=== PATIENT | female | born 1970 | race Caucasian/White ===

== ENCOUNTER → 2016-11-25 | Outpatient (CLI) | payer BC ==
--- NOTE | 2016-11-26 12:56 | MM ---
Reason for exam: screening (asymptomatic). Last mammogram was performed 1 year and 1 month ago. History: Family history of premenopausal breast cancer in mother at age 40. Took hormonal contraceptives for 10 years. Physical Findings: A clinical breast exam by your physician is recommended on an annual basis and results should be correlated with mammographic findings. MG Screening Mammo w CAD Bilateral CC and MLO view(s) were taken. Prior study comparison: October 28, 2015, bilateral MG screening mammo w CAD. October, bilateral MG diagnostic mammo w CAD LUCHO. August 25, 2013, bilateral digital screening mammo w/CAD. The breast tissue is heterogeneously dense. This may lower the sensitivity of mammography. Finding: There are grouped indeterminate calcifications in the upper outer quadrant, posterior position of the left breast. There is a chronic nodularity in the right axilla. New finding, increase in size (nodularity right axilla), and increase in number of calcifications (left breast) since October 28, 2015, October 26, 2014, and August 25, 2013. ASSESSMENT: Incomplete: need additional imaging evaluation, BI-RAD 0 RECOMMENDATION: Special view mammogram of the left breast. Ultrasound of the right breast. [facility] will attempt to contact patient to return for supplemental views and ultrasound. COMFORT
== END | disposition home or self-care (01) ==
LOC: RADMAMWWP 16:39
PROVIDERS: ATTEND Obstetrics & Gynecology
DX: Z12.31 Encounter for screening mammogram for malignant neoplasm of breast (principal); R92.2 Inconclusive mammogram; Z80.3 Family history of malignant neoplasm of breast

== ENCOUNTER → 2016-12-04 | Outpatient (CLI) | payer BC ==
--- NOTE | 2016-12-05 10:04 | MM ---
Reason for exam: additional evaluation requested from abnormal screening. Last mammogram was performed less than 1 month ago. History: Family history of premenopausal breast cancer in mother at age 40. Took hormonal contraceptives for 10 years. Physical Findings: Nurse did not find any significant physical abnormalities on exam. MG 3D Work Up W/Cad LT LM, CC with magnification, and LM with magnification view(s) were taken of the left breast. Prior study comparison: November 25, 2016, bilateral MG screening mammo w CAD. October 28, 2015, bilateral MG screening mammo w CAD. October 26, 2014, bilateral MG diagnostic mammo w CAD LUCHO. The breast tissue is heterogeneously dense. This may lower the sensitivity of mammography. Finding: There are indeterminate coarse heterogeneous, regional calcifications in the upper outer quadrant of the left breast. Increase in number of calcifications since November 25, 2016, October 28, 2015, and October 26, 2014. These results were verbally communicated with the patient and result sheet given to the patient on 12/04/16. ASSESSMENT: Suspicious, BI-RAD 4 RECOMMENDATION: Stereotactic core biopsy of the left breast. (high risk family history) Called Dr. Agarwal with mammographic findings and has scheduled an appointment for the patient for 12/23/16 at 1:[address] Copeland. Biopsy scheduled for 12/18/16 at 2:20. PRELIMINARY REPORT CALLED AND FAXED TO DR. COPELAND ON 12/05/16 AT 300/TP.
--- NOTE | 2016-12-05 10:19 | USB ---
Reason for exam: additional evaluation requested from abnormal screening. History: Family history of premenopausal breast cancer in mother at age 40. Took hormonal contraceptives for 10 years. US Breast Workup Limited RT Right breast ultrasound demonstrates a 4 x 3 x 2mm oval, cystic simple cyst at 10 o'clock stable from 2013 and a 5 x 4 x 4mm lymph node at 10 o'clock stable from 2013. These results were verbally communicated with the patient and result sheet given to the patient on 12/04/16. ASSESSMENT: Benign, BI-RAD 2 RECOMMENDATION: Follow-up diagnostic mammogram of both breasts in 1 year.
== END | disposition home or self-care (01) ==
LOC: RADMAMWWP 13:38
PROVIDERS: ATTEND Obstetrics & Gynecology
DX: R92.8 Other abnormal and inconclusive findings on diagnostic imaging of breast (principal)
CPT/HCPCS: 76642; G0206; G0279

== ENCOUNTER → 2016-12-18 | Day surgery (SDC) | payer BC ==
[2016-12-18 13:53] VITALS: RESP 16; BMI 27.4
[2016-12-18 16:03] VITALS: BP 138/80; PULSE 51; TEMP 97.6
--- NOTE | 2016-12-18 16:05 | MM ---
EXAMINATION TYPE: MG stereo VAD BX LT DATE OF EXAM: 12/18/2016 COMPARISON: Previous mammogram dated 11/25/2016 CLINICAL HISTORY: Abnormal mammogram. TECHNIQUE: Stereotactic guided core biopsy of left breast. FINDINGS: The procedure of stereotactic guided core biopsy was explained to the patient. Benefits, alternatives, and risks were discussed. An informed consent was then obtained. The shortness pathway for biopsy was chosen. Shortness pathway was a lateral to medial approach. I performed the localization, then surgeon, Dr. Zhang performed the remainder of the procedure. A vacuum assisted biopsy gun was used to obtain multiple core samples. The patient tolerated the procedure well without any immediate complication. The patient was kept in the radiology department for short stay after the procedure and then discharged home in stable condition. Targeted calcifications are identified in specimen mammogram. Post biopsy mammogram shows the clip to appear in satisfactory position relative to the targeted area of concern on the preprocedure images. IMPRESSION: SUCCESSFUL, UNCOMPLICATED STEREOTACTIC GUIDED CORE BIOPSY OF AREA OF CONCERN IN THE left BREAST, FULL PATHOLOGY RESULTS TO FOLLOW. Pathology Results: Benign BREAST, LEFT, CORE BIOPSY: FIBROCYSTIC CHANGES INCLUDING SCLEROSING ADENOSIS WITH CALCIFICATIONS, FIBROSIS, CYSTS AND COLUMNAR CELL HYPERPLASIA. Recommendation Follow up mammogram of the left breast in 6 months. COMFORT
== END ==
LOC: RADMAMWWP 13:27
PROVIDERS: ATTEND Surgery
DX: N60.12 Diffuse cystic mastopathy of left breast (principal); N60.22 Fibroadenosis of left breast; N62 Hypertrophy of breast; R92.8 Other abnormal and inconclusive findings on diagnostic imaging of breast
CPT/HCPCS: 88305; 19081; A4648; J2001

== ENCOUNTER → 2017-01-08 | Day surgery (SDC) | payer BC ==
[2017-01-08 07:55] VITALS: RESP 16; BMI 27.4
[2017-01-08 09:35] VITALS: BP 145/77; PULSE 73; TEMP 98.3
--- NOTE | 2017-01-08 10:27 | MM ---
EXAMINATION TYPE: MG stereo VAD BX LT DATE OF EXAM: 01/08/2017 COMPARISON: Prior stereotactic guided core biopsy December 18, 2016 and older studies. CLINICAL HISTORY: Prior abnormal mammogram. Family history of breast cancer in mom with negative rece nt biopsy but additional sampling of more posterior calcifications or tissue is requested TECHNIQUE: Stereotactic guided core biopsy of left breast with clip placement and follow-up two-view mammogram. FINDINGS: The procedure of stereotactic guided core biopsy was explained to the patient. Benefits, a lternatives, and risks were discussed. An informed consent was then obtained. Inferior approach was chosen due to posterior location. I performed the localization then performed t he remainder of the procedure. Overlying skin is cleansed with Betadine. Lidocaine is used as anesthe tic into the skin. Lidocaine with epinephrine is used as anesthetic into the deeper tissue. A vacuum assisted biopsy gun was used to obtain multiple core samples. The patient tolerated the procedure well without any immediate complication. The patient was kept in the radiology department for short stay after the procedure and then discharged home in stable condi tion. Targeted calcifications are identified in specimen mammogram. Post biopsy mammogram shows the clip to appear in satisfactory position relative to the targeted area of concern on the preprocedure images the more posterior regional indeterminate calcifications and is posterior in location to firs t biopsy site. IMPRESSION: SUCCESSFUL, UNCOMPLICATED STEREOTACTIC GUIDED CORE BIOPSY OF AREA OF CONCERN IN THE LEFT BREAST, FULL PATHOLOGY RESULTS TO FOLLOW. Low index of suspicion noted at time of procedure.
== END ==
LOC: RADMAMWWP 07:28
PROVIDERS: ATTEND Surgery
DX: N60.32 Fibrosclerosis of left breast (principal); N64.9 Disorder of breast, unspecified; R92.8 Other abnormal and inconclusive findings on diagnostic imaging of breast; N60.22 Fibroadenosis of left breast; N60.92 Unspecified benign mammary dysplasia of left breast; Z88.5 Allergy status to narcotic agent; Z88.0 Allergy status to penicillin
CPT/HCPCS: 88305; 19081; A4648; J2001

== ENCOUNTER → 2017-12-30 | Outpatient (CLI) | payer BC ==
--- NOTE | 2017-12-31 09:04 | MM ---
Reason for exam: additional evaluation requested from prior study. Last mammogram was performed 1 year and 1 month ago. History: Family history of premenopausal breast cancer in mother at age 40. Benign MG stereo VAD BX LT of the left breast, January 08, 2017. Benign MG stereo VAD BX LT of the left breast, December 18, 2016. Took hormonal contraceptives for 10 years. Physical Findings: Nurse did not find any significant physical abnormalities on exam. MG 3D Diag Mammo W/Cad LUCHO Bilateral CC and MLO view(s) were taken. Prior study comparison: December 04, 2016, left breast MG 3d work up w/cad LT. November 25, 2016, bilateral MG screening mammo w CAD. The breast tissue is heterogeneously dense. This may lower the sensitivity of mammography. Finding: There are typically benign round, regional calcifications in the posterior position of the left breast. Previous mammotome biopsy in the left breast x 2. There is no discrete abnormality. These results were verbally communicated with the patient and result sheet given to the patient on 12/30/17. ASSESSMENT: Benign, BI-RAD 2 RECOMMENDATION: Routine screening mammogram of both breasts in 1 year.
== END | disposition home or self-care (01) ==
LOC: RADMAMWWP 14:31
PROVIDERS: ATTEND Obstetrics & Gynecology
DX: R92.8 Other abnormal and inconclusive findings on diagnostic imaging of breast (principal)
CPT/HCPCS: 77062; 77066

== ENCOUNTER 2018-04-29 12:23 | Emergency (ER) | payer BC ==
[2018-04-29 12:42] VITALS: RESP 18
[2018-04-29] MEDS ORDERED: KETOROLAC 30 MG/ML 1 ML VIAL IVP STA (13:03)
[2018-04-29] MEDS ORDERED: ONDANSETRON 4 MG/2 ML VIAL IVP STA (13:03)
--- NOTE | 2018-04-29 13:34 | ED ---
General Adult HPI - General Chief complaint: Dizziness Stated complaint: neck pain/nausea Time Seen by Provider: 04/29/18 12:52 Source: patient, RN notes reviewed Mode of arrival: wheelchair Limitations: no limitations - History of Present Illness Initial comments: Patient's a 48-year-old female presented to the emergency room today with multiple complaints. Patient does admit that over the last few weeks she's had some right-sided neck pain that radiates down to the right arm. She states that she's had chronic neck problems for years. She states it does seem to be increase in the past 3 days she's had a worse pain. She states that she tried some ibuprofen this morning. She states when she got work a coworker had Excedrin that she did try. She is unsure if it's related to the following symptoms of feeling nauseated, lightheaded and dizzy. She states she felt some heart palpitations as well. She states she's not sure if it's just the medications. She states she's not had symptoms similar to this in the past. Patient does admit that symptoms of nausea, lightheaded dizziness and palpitations have improved some since when they started approximately 10 AM this morning. Patient denies any recent fever, chills, shortness of breath, chest pain, back pain, abdominal pain, dysuria or hematuria, constipation or diarrhea, headaches or visual changes, or any other complaints. - Related Data Home Medications Medication Instructions Recorded Confirmed Cyanocobalamin (Vitamin B-12) 1,000 mcg PO DAILY 12/10/16 04/29/18 [Vitamin B-12] Ferrous Sulfate [Iron] 325 mg PO DAILY 12/10/16 04/29/18 Multivitamin [Multiple Vitamins] 1 tab PO DAILY 12/10/16 04/29/18 [place]-3 Fatty Acids [[place]-3] 1,000 mg PO DAILY 12/10/16 04/29/18 Cholecalciferol [Vitamin D3] 1,000 unit PO DAILY 04/29/18 04/29/18 Cranberry Fruit Extract [Cranberry] 200 mg PO DAILY 04/29/18 04/29/18 Omeprazole 40 mg PO DAILY 04/29/18 04/29/18 Thyroid, Pork [[place] Thyroid] 30 mg PO HS 04/29/18 04/29/18 Thyroid,Pork [[place] Thyroid] 90 mg PO BID 04/29/18 04/29/18 Previous Rx's Medication Instructions Recorded Cyclobenzaprine [Flexeril] 10 mg PO TID #20 tab 04/29/18 Ibuprofen [Motrin] 800 mg PO Q6HR #30 tab 04/29/18 Allergies Allergy/AdvReac Type Severity Reaction Status Date / Time Penicillins Allergy Rash/Hives Verified 04/29/18 12:53 acetaminophen [From Vicodin] AdvReac Nausea & Verified 04/29/18 12:53 Vomiting codeine AdvReac Nausea & Verified 04/29/18 12:53 Vomiting hydrocodone [From Vicodin] AdvReac Nausea & Verified 04/29/18 12:53 Vomiting Review of Systems ROS Statement: Those systems with pertinent positive or pertinent negative responses have been documented in the HPI. ROS Other: All systems not noted in ROS Statement are negative. Past Medical History Past Medical History: Skin Disorder, Thyroid Disorder Additional Past Medical History / Comment(s): Hx. eczema, no current problems. HYPOTHYROID, neck pain History of Any Multi-Drug Resistant Organisms: None Reported Past Surgical History: Section, Orthopedic Surgery, Tubal Ligation Additional Past Surgical History / Comment(s): uterine ablation. BUNIONECTOMY LEFT FOOT. LEFT STEREO-BENIGN 12/18/16 Past Anesthesia/Blood Transfusion Reactions: No Reported Reaction Past Psychological History: Anxiety Smoking Status: Never smoker Past Alcohol Use History: Occasional Past Drug Use History: None Reported - Past Family History Father Family Medical History: Hypertension Mother Family Medical History: Cancer Additional Family Medical History / Comment(s): Breast at 42 General Exam - General Exam Comments Initial Comments: General: The patient is awake and alert, in no distress, and does not appear acutely ill. Eye: Pupils are equal, round and reactive to light. Extra-ocular movements are intact. No nystagmus. There is normal conjunctiva bilaterally. No signs of icterus. Ears, nose, mouth and throat: There are moist mucous membranes and no oral lesions. Neck: The neck is supple, there is no tenderness or JVD. Cardiovascular: There is a regular rate and rhythm. No murmur, rub or gallop is appreciated. Respiratory: Lungs are clear to auscultation, respirations are non-labored, breath sounds are equal. No wheezes, stridor, rales, or rhonchi. Musculoskeletal: Normal ROM. Normal appearance of cervical, thoracic or lumbar spine with no step-off deformity. No tenderness midline over the spinous processes. Patient does have paravertebral tenderness to the right side of cervical spine. Patient also worse with rotation to the right when compared to the left. Sensation intact. Strength 5/5. Pulses equal bilaterally 2+. Neurological: A&O x 3. CN II-XII intact, There are no obvious motor or sensory deficits. Coordination appears grossly intact. Speech is normal. Skin: Skin is warm and dry and no rashes or lesions are noted. Psychiatric: Cooperative, appropriate mood & affect, normal judgment. Limitations: no limitations Course Vital Signs 04/29/18 12:35 Temperature 97.6 F Pulse Rate 98 Respiratory 18 Rate Blood Pressure 118/79 O2 Sat by Pulse 100 Oximetry Medical Decision Making - Medical Decision Making Patient reexamined at this time shows no signs of distress. She does admit to feeling better after Toradol, Valium here in the emergency room. His symptoms of dizziness, lightheaded, heart palpitations have completely gone away. She was feeling better when sugars came here in emergency room. EKG shows normal sinus rhythm. Her x-rays have been reviewed does show some degenerative changes in the neck. Results were reviewed and discussed with patient. Patient is feeling better after Valium. Her pain in her neck is with rotation to the right which is where she's having pain. There is consistent with musculoskeletal cervical strain. Case discussed with attending physician Dr. Thornton. Patient will be continued also laxer, anti-inflammatories advised follow- up with family doctor over the next 2 days. Advised return if any symptoms increase or worsen. - Lab Data Result diagrams: 04/29/18 13:46 04/29/18 13:46 Lab Results 04/29/18 04/29/18 04/29/18 Range/Units 13:46 13:46 13:46 WBC 6.6 (3.8-10.6) k/uL RBC 4.73 (3.80-5.40) m/uL Hgb 13.8 (11.4-16.0) gm/dL Hct 42.0 (34.0-46.0) % MCV 88.8 (80.0-100.0) fL MCH 29.3 (25.0-35.0) pg MCHC 33.0 (31.0-37.0) g/dL RDW 13.1 (11.5-15.5) % Plt Count 251 (150-450) k/uL Neutrophils % 68 % Lymphocytes % 26 % Monocytes % 3 % Eosinophils % 1 % Basophils % 0 % Neutrophils # 4.5 (1.3-7.7) k/uL Lymphocytes # 1.8 (1.0-4.8) k/uL Monocytes # 0.2 (0-1.0) k/uL Eosinophils # 0.1 (0-0.7) k/uL Basophils # 0.0 (0-0.2) k/uL PT (9.0-12.0) sec INR (<1.2) APTT (22.0-30.0) sec Sodium 143 (137-145) mmol/L Potassium 4.3 (3.5-5.1) mmol/L Chloride 106 (98-107) mmol/L Carbon Dioxide 29 (22-30) mmol/L Anion Gap 8 mmol/L BUN 13 (7-17) mg/dL Creatinine 0.60 (0.52-1.04) mg/dL Est GFR (CKD-EPI)AfAm >90 (>60 ml/min/1.73 sqM) Est GFR (CKD-EPI)NonAf >90 (>60 ml/min/1.73 sqM) Glucose 104 H (74-99) mg/dL Calcium 10.3 H (8.4-10.2) mg/dL Total Bilirubin 0.5 (0.2-1.3) mg/dL AST 42 H (14-36) U/L ALT 77 H (9-52) U/L Alkaline Phosphatase 100 (38-126) U/L Total Creatine Kinase 60 (30-135) U/L CK-MB (CK-2) 0.4 (0.0-2.4) ng/mL CK-MB (CK-2) Rel Index 0.7 Troponin I <0.012 (0.000-0.034) ng/mL Total Protein 7.2 (6.3-8.2) g/dL Albumin 4.3 (3.5-5.0) g/dL TSH <0.015 L (0.465-4.680) mIU/L Free T4 0.80 (0.78-2.19) ng/dL Urine Color Urine Appearance (Clear) Urine pH (5.0-8.0) Ur Specific [place] (1.001-1.035) Urine Protein (Negative) Urine Glucose (UA) (Negative) Urine Ketones (Negative) Urine Blood (Negative) Urine Nitrite (Negative) Urine Bilirubin (Negative) Urine Urobilinogen (<2.0) mg/dL Ur Leukocyte Esterase (Negative) Urine RBC (0-5) /hpf Urine WBC (0-5) /hpf Ur Squamous Epith Cells (0-4) /hpf Urine Bacteria (None) /hpf Urine Mucus (None) /hpf 04/29/18 04/29/18 Range/Units 13:46 13:46 WBC (3.8-10.6) k/uL RBC (3.80-5.40) m/uL Hgb (11.4-16.0) gm/dL Hct (34.0-46.0) % MCV (80.0-100.0) fL MCH (25.0-35.0) pg MCHC (31.0-37.0) g/dL RDW (11.5-15.5) % Plt Count (150-450) k/uL Neutrophils % % Lymphocytes % % Monocytes % % Eosinophils % % Basophils % % Neutrophils # (1.3-7.7) k/uL Lymphocytes # (1.0-4.8) k/uL Monocytes # (0-1.0) k/uL Eosinophils # (0-0.7) k/uL Basophils # (0-0.2) k/uL PT 9.8 (9.0-12.0) sec INR 1.0 (<1.2) APTT 22.2 (22.0-30.0) sec Sodium (137-145) mmol/L Potassium (3.5-5.1) mmol/L Chloride (98-107) mmol/L Carbon Dioxide (22-30) mmol/L Anion Gap mmol/L BUN (7-17) mg/dL Creatinine (0.52-1.04) mg/dL Est GFR (CKD-EPI)AfAm (>60 ml/min/1.73 sqM) Est GFR (CKD-EPI)NonAf (>60 ml/min/1.73 sqM) Glucose (74-99) mg/dL Calcium (8.4-10.2) mg/dL Total Bilirubin (0.2-1.3) mg/dL AST (14-36) U/L ALT (9-52) U/L Alkaline Phosphatase (38-126) U/L Total Creatine Kinase (30-135) U/L CK-MB (CK-2) (0.0-2.4) ng/mL CK-MB (CK-2) Rel Index Troponin I (0.000-0.034) ng/mL Total Protein (6.3-8.2) g/dL Albumin (3.5-5.0) g/dL TSH (0.465-4.680) mIU/L Free T4 (0.78-2.19) ng/dL Urine Color Light Yellow Urine Appearance Clear (Clear) Urine pH 6.5 (5.0-8.0) Ur Specific [place] 1.007 (1.001-1.035) Urine Protein Negative (Negative) Urine Glucose (UA) Negative (Negative) Urine Ketones Negative (Negative) Urine Blood Negative (Negative) Urine Nitrite Negative (Negative) Urine Bilirubin Negative (Negative) Urine Urobilinogen <2.0 (<2.0) mg/dL Ur Leukocyte Esterase Moderate H (Negative) Urine RBC 1 (0-5) /hpf Urine WBC 7 H (0-5) /hpf Ur Squamous Epith Cells 1 (0-4) /hpf Urine Bacteria Rare H (None) /hpf Urine Mucus Rare H (None) /hpf Disposition Clinical Impression: Cervical radiculopathy, Torticollis, Dizziness Disposition: HOME SELF-CARE Condition: Good Instructions: Spasmodic Torticollis (ED) Additional Instructions: Please use medication as discussed. Please follow-up with family doctor in the next 2 days. Please return to emergency room if the symptoms increase or worsen or for any other concerns. Prescriptions: Cyclobenzaprine [Flexeril] 10 mg PO TID #20 tab Ibuprofen [Motrin] 800 mg PO Q6HR #30 tab Is patient prescribed a controlled substance at d/c from ED?: No Referrals: Victor Hugo Ndiaye MD [Primary Care Provider] - 1-2 days Time of Disposition: 15:45
--- NOTE | 2018-04-29 14:13 | XR ---
EXAMINATION TYPE: XR chest 2V DATE OF EXAM: 04/29/2018 COMPARISON: NONE HISTORY: Chest pressure and palpitations. TECHNIQUE: Frontal and lateral views of the chest are obtained. FINDINGS: Overlying EKG leads are seen. There is no focal air space opacity, pleural effusion, or pn eumothorax seen. The cardiac silhouette size is within normal limits. The osseous structures are i ntact. IMPRESSION: No acute cardiopulmonary process.
--- NOTE | 2018-04-29 14:14 | XR ---
EXAMINATION TYPE: XR cervical spine limited DATE OF EXAM: 04/29/2018 TECHNIQUE: Frontal, lateral, and open mouth view of the cervical spine are obtained. HISTORY: Pain . Neck pain radiating into right arm. COMPARISON: None FINDINGS: The cervical spine is visualized in its entirety from C1 thru the top of T1 level, it is s atisfactory in alignment without evidence of acute fracture or dislocation. The pre-vertebral soft t issue appears within normal limits. The C1-C2 articulation is within normal limits on the open mouth view. Vertebral body heights are maintained. There is mild anterior spurring and disc space narrowin g C5-C6 and C6-C7 levels. Overlying soft tissue is unremarkable. IMPRESSION: As above.
[2018-04-29 14:16] LABS: ALT 77 U/L (9-52); AST 42 U/L (14-36); Albumin 4.3 g/dL (3.5-5.0); Alkaline Phosphatase 100 U/L (38-126); Anion Gap 8 mmol/L; Blood Urea Nitrogen 13 mg/dL (7-17); Calcium 10.3 mg/dL (8.4-10.2); Carbon Dioxide 29 mmol/L (22-30); Chloride 106 mmol/L (98-107); Glucose 104 mg/dL (74-99); Partial Thromboplastin Time 22.2 sec (22.0-30.0); Potassium 4.3 mmol/L (3.5-5.1); Prothrombin Time 9.8 sec (9.0-12.0); Sodium 143 mmol/L (137-145); Total Bilirubin 0.5 mg/dL (0.2-1.3); Total Protein 7.2 g/dL (6.3-8.2)
[2018-04-29 14:18] LABS: Basophils % (A) 0 %; Eosinophils # (A) 0.1 k/uL (0-0.7); Eosinophils % (A) 1 %; HGB 13.8 gm/dL (11.4-16.0); Lymphocytes # (A) 1.8 k/uL (1.0-4.8); Lymphocytes % (A) 26 %; MCH 29.3 pg (25.0-35.0); MCV 88.8 fL (80.0-100.0); Mean Platelet Volume 6.9; Monocytes # (A) 0.2 k/uL (0-1.0); Monocytes % (A) 3 %; Neutrophils # (A) 4.5 k/uL (1.3-7.7); Neutrophils % (A) 68 %; Platelet Count 251 k/uL (150-450); RBC 4.73 m/uL (3.80-5.40); RDW 13.1 % (11.5-15.5); WBC 6.6 k/uL (3.8-10.6)
[2018-04-29 14:21] LABS: Creatine Kinase 60 U/L (30-135)
[2018-04-29 14:24] LABS: Appearance,Urine Clear (Clear); Bacteria,Urine Rare /hpf; Bilirubin,Urine Negative (Negative); Blood,Urine Negative (Negative); Color,Urine Light Yellow; Glucose,Urine (UA) Negative (Negative); Ketones,Urine Negative (Negative); Leukocyte Esterase,Urine Moderate (Negative); Mucus,Urine Rare /hpf; Nitrite,Urine Negative (Negative); PH, Urine 6.5 (5.0-8.0); Protein,Urine Negative (Negative); RBC,Urine 1 /hpf (0-5); Specific Gravity,Urine 1.007 (1.001-1.035); Squamous Epithelial Cell,Urine 1 /hpf (0-4); Urobilinogen,Urine <2.0 mg/dL (<2.0)
[2018-04-29 14:32] LABS: Creatine Kinase MB 0.4 ng/mL (0.0-2.4); Troponin I <0.012 ng/mL (0.000-0.034)
[2018-04-29] MEDS ORDERED: DIAZEPAM 5 MG TAB PO STA (14:53)
[2018-04-29 16:14] VITALS: BP 154/84; PULSE 69; TEMP 98.3
== END 2018-04-29 16:14 | disposition home or self-care (01) ==
LOC: EC 12:23
DX: M50.122 Cervical disc disorder at C5-C6 level with radiculopathy (principal); M50.123 Cervical disc disorder at C6-C7 level with radiculopathy; M43.6 Torticollis; R42 Dizziness and giddiness; R00.2 Palpitations; E03.9 Hypothyroidism, unspecified; Z79.899 Other long term (current) drug therapy; Z88.6 Allergy status to analgesic agent; Z88.5 Allergy status to narcotic agent; Z88.0 Allergy status to penicillin
CPT/HCPCS: 36415; 93005; 84439; 80053; 84443; 82550; 82553; 84484; 85025; 85610; 85730; 81001; 87086; 72040; 71046; 99284; 96374; 96375; J2405; J1885

== ENCOUNTER → 2018-06-04 | Outpatient (CLI) | payer BC ==
--- NOTE | 2018-06-04 16:47 | MR ---
EXAMINATION TYPE: MR cervical spine wo con DATE OF EXAM: 06/04/2018 COMPARISON: Plain film dated 04/29/2018 HISTORY: Neck pain TECHNIQUE: Multiplanar, multisequence images of the cervical spine were acquired. C2-C3: No evidence for degenerative disc disease. No disc bulge/herniation or protrusion. No Canal stenosis. Foramina are patent bilaterally. C3-C4: No evidence for degenerative disc disease. No disc bulge/herniation or protrusion. No Canal stenosis. Foramina are patent bilaterally. C4-C5: No evidence for degenerative disc disease. No disc bulge/herniation or protrusion. No Canal stenosis. Foramina are patent bilaterally. C5-C6: There is a left posterior paracentral disc herniation causing anterolateral mass effect on the thecal sac, lateral extension contributes to cause foraminal encroachment. Eccentric disc bulge, lat eral extension endplate disc complex towards the right also causes right-sided foraminal encroachment . There is moderate central canal stenosis. C6-C7: Posterior broad-based disc bulge causes anterior mass effect on the thecal sac, mild central c anal stenosis. There is an eccentric component to the left causing foraminal encroachment left greate r than right. C7-T1: No evidence for degenerative disc disease. No disc bulge/herniation or protrusion. No Canal stenosis. Foramina are patent bilaterally. Cervical segments are intact. There is normal alignment. Cervical spinal cord is of normal signal. Craniovertebral junction relationships are within normal limits. Cervical vertebral bodies show pre served height and alignment. There is multilevel spondylosis present. Some minimal endplate discogeni c marrow signal changes are present. Loss of disc height signal is present greatest at C5-6, C6-7. IMPRESSION: Disc herniation greatest at C5-6 and to lesser extent C6-7, multilevel foraminal encroachment.
== END | disposition home or self-care (01) ==
LOC: RADMRIMAIN 15:52
PROVIDERS: ATTEND Physical Medicine & Rehabilitation
DX: M50.122 Cervical disc disorder at C5-C6 level with radiculopathy (principal); E03.9 Hypothyroidism, unspecified
CPT/HCPCS: 72141

== ENCOUNTER → 2019-01-18 | Outpatient (CLI) | payer BC ==
--- NOTE | 2019-01-20 13:06 | MM ---
Reason for exam: screening (asymptomatic). Last mammogram was performed 1 year and 1 month ago. History: Family history of premenopausal breast cancer in mother at age 40. Benign MG stereo VAD BX LT of the left breast, January 08, 2017. Benign MG stereo VAD BX LT of the left breast, December 18, 2016. Took hormonal contraceptives for 10 years. Taking estrogen for 2 months. MG 3D Screening Mammo W/Cad Bilateral CC and MLO view(s) were taken. Prior study comparison: December 30, 2017, bilateral MG 3d diag mammo w/cad LUCHO. December 04, 2016, left breast MG 3d work up w/cad LT. The breast tissue is heterogeneously dense. This may lower the sensitivity of mammography. There are benign-appearing left breast calcification and biopsy markers noted. No suspicious abnormality. No significant new finding when compared with prior studies. ASSESSMENT: Benign, BI-RAD 2 RECOMMENDATION: Routine screening mammogram of both breasts in 1 year.
== END | disposition home or self-care (01) ==
LOC: RADMAMWWP 15:40
PROVIDERS: ATTEND Obstetrics & Gynecology
DX: Z12.31 Encounter for screening mammogram for malignant neoplasm of breast (principal)
CPT/HCPCS: 77063; 77067

== ENCOUNTER → 2020-02-01 | Outpatient (CLI) | payer BC ==
--- NOTE | 2020-02-03 09:15 | MM ---
Reason for exam: screening (asymptomatic). Last mammogram was performed 1 year ago. History: Patient is postmenopausal. Family history of premenopausal breast cancer in mother at age 40. Benign MG stereo VAD BX LT of the left breast, January 08, 2017. Benign MG stereo VAD BX LT of the left breast, December 18, 2016. Took hormonal contraceptives for 10 years. Took estrogen for 2 months. Physical Findings: A clinical breast exam by your physician is recommended on an annual basis and results should be correlated with mammographic findings. MG 3D Screening Mammo W/Cad Bilateral CC and MLO view(s) were taken. Prior study comparison: January 18, 2019, bilateral MG 3d screening mammo w/cad. December 30, 2017, bilateral MG 3d diag mammo w/cad LUCHO. December 04, 2016, left breast MG 3d work up w/cad LT. October 28, 2015, bilateral MG screening mammo w CAD. The breast tissue is heterogeneously dense. This may lower the sensitivity of mammography. Previous mammotome biopsy in the left breast. There is chronic nodularity in the right breast. Possible partially obscured mass medial left CC view. Not clearly seen on MLO or before 2019. ASSESSMENT: Incomplete: need additional imaging evaluation, BI-RAD 0 RECOMMENDATION: Special view mammogram of the left breast. (3D) If lesion persists on supplemental views, image directed ultrasound is recommended. [facility] will attempt to contact patient to return for supplemental views and ultrasound if indicated.
== END | disposition home or self-care (01) ==
LOC: RADMAMWWP 14:37
PROVIDERS: ATTEND Obstetrics & Gynecology
DX: Z12.31 Encounter for screening mammogram for malignant neoplasm of breast (principal); Z80.3 Family history of malignant neoplasm of breast
CPT/HCPCS: 77063; 77067

== ENCOUNTER → 2020-02-10 | Outpatient (CLI) | payer BC ==
--- NOTE | 2020-02-10 11:35 | MM ---
Reason for exam: additional evaluation requested from abnormal screening. Last mammogram was performed less than 1 month ago. History: Patient is postmenopausal. Family history of premenopausal breast cancer in mother at age 40. Benign MG stereo VAD BX LT of the left breast, January 08, 2017. Benign MG stereo VAD BX LT of the left breast, December 18, 2016. Took hormonal contraceptives for 10 years. Took estrogen for 2 months. Physical Findings: Nurse did not find any significant physical abnormalities on exam. MG 3D Work Up W/Cad LT Spot compression CC and LM view(s) were taken of the left breast. Prior study comparison: February 01, 2020, bilateral MG 3d screening mammo w/cad. January 18, 2019, bilateral MG 3d screening mammo w/cad. The breast tissue is heterogeneously dense. This may lower the sensitivity of mammography. Benign appearing calcifications in the left breast. Previous mammotome biopsy in the left breast. There is chronic nodularity in the left breast. These results were verbally communicated with the patient and result sheet given to the patient on 02/10/20. ASSESSMENT: Probably benign, BI-RAD 3 RECOMMENDATION: Follow-up diagnostic mammogram of the left breast in 6 months.
== END | disposition home or self-care (01) ==
LOC: RADMAMWWP 10:38
PROVIDERS: ATTEND Obstetrics & Gynecology
DX: R92.8 Other abnormal and inconclusive findings on diagnostic imaging of breast (principal)
CPT/HCPCS: 77061; 77065

== ENCOUNTER → 2020-10-23 | Outpatient (CLI) | payer BC ==
--- NOTE | 2020-10-24 09:53 | MM ---
Reason for exam: follow-up at short interval from prior study. Last mammogram was performed 8 months ago. History: Patient is postmenopausal. Family history of breast cancer in maternal cousin and premenopausal breast cancer in mother at age 40. Benign MG stereo VAD BX LT of the left breast, January 08, 2017. Benign MG stereo VAD BX LT of the left breast, December 18, 2016. Took hormonal contraceptives for 10 years. Took estrogen for 2 months. Physical Findings: Nurse did not find any significant physical abnormalities on exam. MG 3D Diag Mammo W/Cad LT CC and MLO view(s) were taken of the left breast. Prior study comparison: February 10, 2020, left breast MG 3d work up w/cad LT. February 01, 2020, bilateral MG 3d screening mammo w/cad. The breast tissue is heterogeneously dense. This may lower the sensitivity of mammography. Benign appearing calcifications in the left breast. Previous mammotome biopsy in the left breast. There is chronic nodularity in the left breast, stable. These results were verbally communicated with the patient and result sheet given to the patient on 10/23/20. ASSESSMENT: Benign, BI-RAD 2 RECOMMENDATION: Return to routine screening mammogram schedule for both breasts. Back on schedule.
== END | disposition home or self-care (01) ==
LOC: RADMAMWWP 15:05
PROVIDERS: ATTEND Obstetrics & Gynecology
DX: N63.20 Unspecified lump in the left breast, unspecified quadrant (principal); R92.2 Inconclusive mammogram
CPT/HCPCS: 77061; 77065

== ENCOUNTER → 2021-06-20 | Outpatient (CLI) | payer BC ==
--- NOTE | 2021-06-22 11:46 | MM ---
Reason for exam: screening (asymptomatic). Last mammogram was performed 8 months ago. History: Patient is postmenopausal. Family history of breast cancer in maternal cousin at age 70 and premenopausal breast cancer in mother at age 40. Benign MG stereo VAD BX LT of the left breast, January 08, 2017. Benign MG stereo VAD BX LT of the left breast, December 18, 2016. Took hormonal contraceptives for 10 years. Took estrogen for 2 months. Physical Findings: A clinical breast exam by your physician is recommended on an annual basis and results should be correlated with mammographic findings. MG 3D Screening Mammo W/Cad Bilateral CC and MLO view(s) were taken. Prior study comparison: October 23, 2020, left breast MG 3d diag mammo w/cad LT. February 10, 2020, left breast MG 3d work up w/cad LT. The breast tissue is heterogeneously dense. This may lower the sensitivity of mammography. Previous mammotome biopsy in the left breast x 2. There is chronic nodularity bilaterally. Medial asymmetric density left CC vies is unchanged. No significant changes when compared with prior studies. ASSESSMENT: Benign, BI-RAD 2 RECOMMENDATION: Routine screening mammogram of both breasts in 1 year. Patient should continue monthly self breast exams. A negative report should not preclude additional follow up of suspicious palpable abnormalities.
== END | disposition home or self-care (01) ==
LOC: RADMAMWWP 16:19
PROVIDERS: ATTEND Obstetrics & Gynecology
DX: Z12.31 Encounter for screening mammogram for malignant neoplasm of breast (principal); Z80.3 Family history of malignant neoplasm of breast; Z78.0 Asymptomatic menopausal state
CPT/HCPCS: 77063; 77067

== ENCOUNTER → 2021-11-29 | Outpatient (CLI) | payer BC ==
[2021-11-29 22:35] LABS: Estradiol 31.5 pg/mL; Follicle Stimulating Hormone 58.2 mIU/mL; Testosterone 45.7 ng/mL (7.00-45.62)
== END | disposition home or self-care (01) ==
LOC: LABWHC1 15:45
PROVIDERS: ATTEND Obstetrics & Gynecology
DX: N95.1 Menopausal and female climacteric states (principal); Z79.890 Hormone replacement therapy
CPT/HCPCS: 36415; 82670; 83001; 84144; 84403

== ENCOUNTER → 2022-02-01 | Outpatient (CLI) | payer BC ==
[2022-02-01 16:03] LABS: Estradiol 46.8 pg/mL; Follicle Stimulating Hormone 43.8 mIU/mL
== END | disposition home or self-care (01) ==
LOC: LABWHC1 10:37
PROVIDERS: ATTEND Obstetrics & Gynecology
DX: N95.1 Menopausal and female climacteric states (principal)
CPT/HCPCS: 36415; 82670; 83001; 84144; 84403

== ENCOUNTER 2022-03-08 07:55 | Emergency (ER) | payer BC ==
[2022-03-08 08:03] VITALS: RESP 18
[2022-03-08] MEDS ORDERED: ASPIRIN 81 MG PO STA (08:30)
[2022-03-08] MEDS ORDERED: methocarbamoL 750 MG TAB PO STA (08:30)
[2022-03-08] MEDS ORDERED: KETOROLAC 15 MG/ML 1 ML VIAL IVP STA (08:30)
--- NOTE | 2022-03-08 08:38 | ED ---
General Adult HPI - General Chief complaint: Chest Pain Stated complaint: Pinched nerve, chest pains Time Seen by Provider: 03/08/22 08:15 Source: patient, family, RN notes reviewed, old records reviewed Mode of arrival: ambulatory Limitations: no limitations - History of Present Illness Initial comments: Patient is a 51-year-old female who presents emergency Department complaints of sudden onset chest pain. Began approximately 3 hours prior to arrival. Describes it as a sharp, tightness located over her right chest that is worse with certain movements of her torso as well as right arm. States she was taking a shower when this happened. She states it radiates from an anterior aspect of one of her ribs around the side towards her armpit. States is slightly worse with deep inspiration. Denies cough, fevers, chills. Denies any left-sided c hest pain. He believes it is related to a musculoskeletal injury but with her age is concerned maybe her current. States she does have a history of chronic radiculopathy from his nerve her neck and also believes this may be [place] factor. Denies any shortness of breath. Denies any lower extremity edema, orthopnea, PND. Denies any history of blood clots in herself or family members. Presents for further evaluation at this time over concern for her atypical chest pain.States the pain began while she was in the shower and she felt something pull when she moved the wrong way. - Related Data Home Medications Medication Instructions Recorded Confirmed Cyanocobalamin (Vitamin B-12) 1,000 mcg PO DAILY 12/10/16 04/29/18 [Vitamin B-12] Ferrous Sulfate [Iron] 325 mg PO DAILY 12/10/16 04/29/18 Multivitamin [Multiple Vitamins] 1 tab PO DAILY 12/10/16 04/29/18 [place]-3 Fatty Acids [[place]-3] 1,000 mg PO DAILY 12/10/16 04/29/18 Cholecalciferol [Vitamin D3] 1,000 unit PO DAILY 04/29/18 04/29/18 Cranberry Fruit Extract [Cranberry] 200 mg PO DAILY 04/29/18 04/29/18 Omeprazole 40 mg PO DAILY 04/29/18 04/29/18 Thyroid, Pork [[place] Thyroid] 30 mg PO HS 04/29/18 04/29/18 Thyroid,Pork [[place] Thyroid] 90 mg PO BID 04/29/18 04/29/18 Previous Rx's Medication Instructions Recorded Cyclobenzaprine [Flexeril] 10 mg PO TID #20 tab 04/29/18 Ibuprofen [Motrin] 800 mg PO Q6HR #30 tab 04/29/18 methocarbamoL [Robaxin-750] 750 mg PO BID PRN 7 Days #14 tab 03/08/22 Allergies Allergy/AdvReac Type Severity Reaction Status Date / Time Penicillins Allergy Rash/Hives Verified 03/08/22 08:03 acetaminophen [From Vicodin] AdvReac Nausea & Verified 03/08/22 08:03 Vomiting codeine AdvReac Nausea & Verified 03/08/22 08:03 Vomiting hydrocodone [From Vicodin] AdvReac Nausea & Verified 03/08/22 08:03 Vomiting Review of Systems ROS Statement: Those systems with pertinent positive or pertinent negative responses have been documented in the HPI. Review of Systems: CONST: Denies fever EYES: Denies blurry vision ENT: Denies nasal congestion C/V: Endorses chest pain RESP: Denies shortness of breath GI: Denies abdominal pain : Denies dysuria SKIN: Denies rash. MSK: Endorses rib pain NEURO: Denies headache ROS Other: All systems not noted in ROS Statement are negative. Past Medical History Past Medical History: Skin Disorder, Thyroid Disorder Additional Past Medical History / Comment(s): Hx. eczema, no current problems. HYPOTHYROID, neck pain History of Any Multi-Drug Resistant Organisms: None Reported Past Surgical History: Section, Orthopedic Surgery, Tubal Ligation Additional Past Surgical History / Comment(s): uterine ablation. BUNIONECTOMY LEFT FOOT. LEFT STEREO-BENIGN 12/18/16 Past Anesthesia/Blood Transfusion Reactions: No Reported Reaction Past Psychological History: Anxiety Smoking Status: Never smoker Past Alcohol Use History: Occasional Past Drug Use History: None Reported - Past Family History Father Family Medical History: Hypertension Mother Family Medical History: Cancer Additional Family Medical History / Comment(s): Breast at 42 General Exam - General Exam Comments Initial Comments: General: Appears in no acute distress. HEAD: Normal with no signs of head trauma. EYES: PERRLA, EOMI, conjunctiva normal, no discharge. ENT: Hearing grossly intact, normal oropharynx. RESPIRATORY: Clear breath sounds bilaterally. No wheezes, rales, or rhonchi. C/V: Regular rate and rhythm. S1 and S2 auscultated, no edema, peripheral pulses 2+ and intact throughout chest pain is reproducible on palpation located over the right second/third rib space and seems to radiate towards her axilla. Radiates along the rib space. No step-offs or deformities. ABD: Abd is soft, nontender, nondistended EXT: Normal range of motion, no obvious deformity. No midline tenderness of the cervical, thoracic and lumbar spines. SKIN: No rashes or lesions observed on exposed skin. NEURO: Alert and oriented 4. No focal deficits. Limitations: no limitations Course Vital Signs 03/08/22 03/08/22 03/08/22 07:58 09:10 10:40 Temperature 98.2 F 98 F Pulse Rate 58 L 71 Pulse Rate [ 60 Sitting [employer] Project [employer]] Respiratory 18 18 Rate Blood Pressure 131/79 124/63 O2 Sat by Pulse 98 98 Oximetry Medical Decision Making - Medical Decision Making The patient's presentation and physical exam, she presents for atypical chest pain. Appears to be chest wall pain, but with her age cannot rule out atypical ACS presentation at this time. Did recommend we obtain cardiopulmonary labs. She was in agreement with this plan. This includes a screening d-dimer. She'll be treated with analgesia. Vital signs are within normal limits. Patient was in agreement this plan. EKG shows no signs of acute ischemia.Chest x-ray shows no acute cardio pulmonary process. Laboratory studies are unremarkable including d-dimer within normal limits and undetectable troponin. On reevaluation, patient is feeling improved. He has resided. I updated her on the results of her workup. I do believe it is safer to be discharged home at this time. Heart score is low at 2-3. She was in agreement this plan. We discussed her pain is likely secondary to muscle skeletal pain. I will provide the patient with a prescription for Robaxin. I instructed the patient to follow up with their PCP in the next 1-3 days. I explained that the patient should return to the emergency department if they experience any worsening symptoms. Strict return precautions were discussed with the patient. The patient expressed understanding of these instructions. I answered all questions that the patient had. The patient was discharged home in good condition with their prescriptions and follow up information. - Lab Data Result diagrams: 03/08/22 08:55 03/08/22 08:55 Lab Results 03/08/22 03/08/22 03/08/22 Range/Units 08:55 08:55 08:55 WBC 5.6 (3.8-10.6) k/uL RBC 4.88 (3.80-5.40) m/uL Hgb 14.2 (11.4-16.0) gm/dL Hct 44.0 (34.0-46.0) % MCV 90.0 (80.0-100.0) fL MCH 29.0 (25.0-35.0) pg MCHC 32.2 (31.0-37.0) g/dL RDW 13.1 (11.5-15.5) % Plt Count 224 (150-450) k/uL MPV 7.5 Neutrophils % 63 % Lymphocytes % 27 % Monocytes % 6 % Eosinophils % 1 % Basophils % 1 % Neutrophils # 3.5 (1.3-7.7) k/uL Lymphocytes # 1.5 (1.0-4.8) k/uL Monocytes # 0.3 (0-1.0) k/uL Eosinophils # 0.1 (0-0.7) k/uL Basophils # 0.0 (0-0.2) k/uL PT 10.1 (9.0-12.0) sec INR 0.9 (<1.2) APTT 22.9 (22.0-30.0) sec D-Dimer 0.31 (<0.60) mg/L FEU Sodium 137 (137-145) mmol/L Potassium 4.7 (3.5-5.1) mmol/L Chloride 103 (98-107) mmol/L Carbon Dioxide 25 (22-30) mmol/L Anion Gap 9 mmol/L BUN 21 H (7-17) mg/dL Creatinine 0.67 (0.52-1.04) mg/dL Est GFR (CKD-EPI)AfAm >90 (>60 ml/min/1.73 sqM) Est GFR (CKD-EPI)NonAf >90 (>60 ml/min/1.73 sqM) Glucose 100 H (74-99) mg/dL Calcium 9.6 (8.4-10.2) mg/dL Magnesium 1.9 (1.6-2.3) mg/dL Total Bilirubin 0.5 (0.2-1.3) mg/dL AST 21 (14-36) U/L ALT 20 (4-34) U/L Alkaline Phosphatase 79 (38-126) U/L Troponin I (0.000-0.034) ng/mL Total Protein 7.0 (6.3-8.2) g/dL Albumin 4.8 (3.5-5.0) g/dL 03/08/22 Range/Units 08:55 WBC (3.8-10.6) k/uL RBC (3.80-5.40) m/uL Hgb (11.4-16.0) gm/dL Hct (34.0-46.0) % MCV (80.0-100.0) fL MCH (25.0-35.0) pg MCHC (31.0-37.0) g/dL RDW (11.5-15.5) % Plt Count (150-450) k/uL MPV Neutrophils % % Lymphocytes % % Monocytes % % Eosinophils % % Basophils % % Neutrophils # (1.3-7.7) k/uL Lymphocytes # (1.0-4.8) k/uL Monocytes # (0-1.0) k/uL Eosinophils # (0-0.7) k/uL Basophils # (0-0.2) k/uL PT (9.0-12.0) sec INR (<1.2) APTT (22.0-30.0) sec D-Dimer (<0.60) mg/L FEU Sodium (137-145) mmol/L Potassium (3.5-5.1) mmol/L Chloride (98-107) mmol/L Carbon Dioxide (22-30) mmol/L Anion Gap mmol/L BUN (7-17) mg/dL Creatinine (0.52-1.04) mg/dL Est GFR (CKD-EPI)AfAm (>60 ml/min/1.73 sqM) Est GFR (CKD-EPI)NonAf (>60 ml/min/1.73 sqM) Glucose (74-99) mg/dL Calcium (8.4-10.2) mg/dL Magnesium (1.6-2.3) mg/dL Total Bilirubin (0.2-1.3) mg/dL AST (14-36) U/L ALT (4-34) U/L Alkaline Phosphatase (38-126) U/L Troponin I <0.012 (0.000-0.034) ng/mL Total Protein (6.3-8.2) g/dL Albumin (3.5-5.0) g/dL - EKG Data -: EKG Interpreted by Me EKG Comments: 12-lead Electrocardiogram Interpretation Note EKG was reviewed and interpreted by myself. 12-lead ECG performed at 0812 is interpreted by me as revealing normal sinus rhythm at a rate of 64 beats per minute. Evangeline is normal. OR interval is 133 ms, QRS duration is 98 ms, QTc is 396 ms.. There were no ST or T wave abnormalities to suggest myocardial ischemia or injury. R wave progression across the precordium was satisfactory. By my interpretation this EKG is non-diagnostic for acute ischemia. Disposition Clinical Impression: Chest wall pain Disposition: HOME SELF-CARE Condition: Good Instructions (If sedation given, give patient instructions): Chest Pain (ED) Prescriptions: methocarbamoL [Robaxin-750] 750 mg PO BID PRN 7 Days #14 tab PRN Reason: Pain Is patient prescribed a controlled substance at d/c from ED?: No Referrals: Victor Hugo Ndiaye MD [Primary Care Provider] - 1-2 days Time of Disposition: 10:30
[2022-03-08 09:20] LABS: Basophils % (A) 1 %; Eosinophils # (A) 0.1 k/uL (0-0.7); Eosinophils % (A) 1 %; HGB 14.2 gm/dL (11.4-16.0); Lymphocytes # (A) 1.5 k/uL (1.0-4.8); Lymphocytes % (A) 27 %; MCHC 32.2 g/dL (31.0-37.0); Mean Platelet Volume 7.5; Monocytes # (A) 0.3 k/uL (0-1.0); Monocytes % (A) 6 %; Neutrophils # (A) 3.5 k/uL (1.3-7.7); Neutrophils % (A) 63 %; Platelet Count 224 k/uL (150-450); RBC 4.88 m/uL (3.80-5.40); RDW 13.1 % (11.5-15.5); WBC 5.6 k/uL (3.8-10.6)
--- NOTE | 2022-03-08 09:21 | XR ---
EXAMINATION TYPE: XR chest 2V DATE OF EXAM: 03/08/2022 COMPARISON: 04/29/2018 HISTORY: Shortness of breath TECHNIQUE: Frontal and lateral views of the chest are obtained. FINDINGS: Scattered senescent parenchymal changes noted. Hyperinflation compatible with COPD. No evidence for infiltrate. No evidence for atelectasis. Heart size is stable. Mediastinal structures are stable and grossly unremarkable. No evidence for hilar prominence. Degenerative changes dorsal spine. IMPRESSION: 1. No evidence for acute pulmonary disease.
[2022-03-08 09:36] LABS: ALT 20 U/L (4-34); AST 21 U/L (14-36); African American GFR (CKD) >90 (>60 ml/min/1.73 sqM); Albumin 4.8 g/dL (3.5-5.0); Alkaline Phosphatase 79 U/L (38-126); Blood Urea Nitrogen 21 mg/dL (7-17); Calcium 9.6 mg/dL (8.4-10.2); Carbon Dioxide 25 mmol/L (22-30); Glucose 100 mg/dL (74-99); Non-African American GFR(CKD) >90 (>60 ml/min/1.73 sqM); Potassium 4.7 mmol/L (3.5-5.1); Total Bilirubin 0.5 mg/dL (0.2-1.3)
[2022-03-08 09:37] LABS: Anion Gap 9 mmol/L; Chloride 103 mmol/L (98-107); Magnesium 1.9 mg/dL (1.6-2.3); Sodium 137 mmol/L (137-145)
[2022-03-08 09:43] LABS: INR 0.9 (<1.2); Partial Thromboplastin Time 22.9 sec (22.0-30.0); Prothrombin Time 10.1 sec (9.0-12.0)
[2022-03-08 10:41] VITALS: BP 124/63; PULSE 71; TEMP 98
== END 2022-03-08 10:58 | disposition home or self-care (01) ==
LOC: EC 07:55
DX: R07.89 Other chest pain (principal); E03.9 Hypothyroidism, unspecified; Z88.0 Allergy status to penicillin; Z88.6 Allergy status to analgesic agent; Z88.5 Allergy status to narcotic agent
CPT/HCPCS: 36415; 93005; 85379; 80053; 83735; 84484; 85025; 85610; 85730; 71046; 99285; 96374; J1885

== ENCOUNTER → 2022-06-26 | Outpatient (CLI) | payer BC ==
--- NOTE | 2022-06-27 18:33 | MM ---
Reason for Exam: Screening (asymptomatic). Last mammogram was performed 1 year(s) and 1 month(s) ago. Patient History: Menarche at age 13. First Full-Term at age 25. Postmenopausal. Estrogen for 2 months. Patient used Hormonal Contraceptives for 10 years. 01/08/2017, Benign Core Biopsy on the left side. 12/18/2016, Benign Core Biopsy on the left side. Maternal cousin had breast cancer, age 70. Mother had breast cancer, age 40. Risk Values: Veronica 5 year model risk: 2.9%. NCI Lifetime model risk: 21.2%. Prior Study Comparison: 02/10/2020 Left Diagnostic Mammogram, [facility]. 10/23/2020 Left Diagnostic Mammogram, [facility]. 06/20/2021 Bilateral Screening Mammogram, [facility]. Tissue Density: The breast tissue is heterogeneously dense. This may lower the sensitivity of mammography. Findings: Analyzed By CAD. There is chronic bilateral nodularity. Additionally, areas of asymmetric density, for example, medial left CC view anterior to middle depth remain unchanged from prior exams. 2 microclips upper outer quadrant left breast from prior biopsies. No significant change from prior exams. Overall Assessment: Benign, BI-RAD 2 Management: Screening Mammogram of both breasts in 1 year. 1. Note the patient's high Veronica score and overall lifetime risk for the development of breast cancer. Consider specialist referral to assess eligibility for a risk reducing agent. In addition, the patient may qualify for future screening with alternating mammogram and breast MRI. 2. Patient should continue monthly self breast exams. A clinical breast exam by your physician is recommended on an annual basis. 3. This exam should not preclude additional follow-up of suspicious palpable abnormalities. Electronically signed and approved by: Vivek Rosa M.D. Radiologist
== END | disposition home or self-care (01) ==
LOC: RADMAMWWP 14:40
PROVIDERS: ATTEND Obstetrics & Gynecology
DX: Z12.31 Encounter for screening mammogram for malignant neoplasm of breast (principal); Z78.0 Asymptomatic menopausal state; Z80.3 Family history of malignant neoplasm of breast
CPT/HCPCS: 77063; 77067

== ENCOUNTER → 2023-07-14 | Outpatient (CLI) | payer BC ==
--- NOTE | 2023-07-16 11:02 | MM ---
Reason for Exam: Screening (asymptomatic). Last screening mammogram was performed 12 month(s) ago. Patient History: Menarche at age 13. First Full-Term at age 25. Postmenopausal. Patient has history of breast feeding. Estrogen for 2 months. Patient used Hormonal Contraceptives for 10 years. 01/08/2017, Benign Core Biopsy on the left side. 12/18/2016, Benign Core Biopsy on the left side. Maternal cousin had breast cancer, age 70. Mother had breast cancer, age 40. Risk Values: Veronica 5 year model risk: 3.1%. NCI Lifetime model risk: 20.9%. Prior Study Comparison: 10/23/2020 Left Diagnostic Mammogram, [facility]. 06/20/2021 Bilateral Screening Mammogram, [facility]. 06/26/2022 Bilateral MG 3D screening mammo w/cad, [facility]. Tissue Density: The breast tissue is heterogeneously dense. This may lower the sensitivity of mammography. Findings: Analyzed By CAD. Left surgical clips/biopsy clips. There is no suspicious group of microcalcifications or new suspicious mass. Overall Assessment: Benign, BI-RAD 2 Management: Screening Mammogram of both breasts in [address] [facility] will attempt to contact patient to return for supplemental views and ultrasound if indicated. Patient should continue monthly self-breast exams. A clinical breast exam by your physician is recommended on an annual basis. This exam should not preclude additional follow-up of suspicious palpable abnormalities. Note on Veronica scores and lifetime risk: 1. A Veronica score greater than 3% is considered moderate risk. If this is the case, consider specialist referral to assess eligibility for a risk reducing agent. 2. If overall lifetime risk for the development of breast cancer is 20% or higher, the patient may qualify for future screening with alternating mammogram and breast MRI. Electronically signed and approved by: Anthony Atwood DO
== END | disposition home or self-care (01) ==
LOC: RADMAMWWP 15:56
PROVIDERS: ATTEND Obstetrics & Gynecology
DX: Z12.31 Encounter for screening mammogram for malignant neoplasm of breast (principal); Z80.3 Family history of malignant neoplasm of breast; Z78.0 Asymptomatic menopausal state
CPT/HCPCS: 77063; 77067

== ENCOUNTER → 2023-11-01 | Outpatient (CLI) | payer BC ==
[2023-11-01 13:14] LABS: Basophils # (A) 0.04 X 10*3/uL (0.00-0.10); Basophils % (A) 0.6 %; Eosinophils # (A) 0.12 X 10*3/uL (0.04-0.35); Eosinophils % (A) 1.7 %; HCT 41.1 % (37.2-46.3); HGB 13.8 g/dL (12.0-15.0); Lymphocytes # (A) 2.65 X 10*3/uL (0.90-5.00); MCH 29.6 pg (27.0-32.0); MCHC 33.6 g/dL (32.0-37.0); Mean Platelet Volume 9.9 FL (9.5-12.2); Monocytes # (A) 0.51 X 10*3/uL (0.20-1.00); Monocytes % (A) 7.3 %; NRBC Per 100 WBC 0 X 10*3/uL (0.00-0.01); Neutrophils # (A) 3.65 X 10*3/uL (1.80-7.70); Neutrophils % (A) 52.3 %; Platelet Count 257 X 10*3/uL (140-440); RBC 4.67 X 10*6/uL (4.10-5.20); WBC 6.98 X 10*3/uL (4.50-10.00)
[2023-11-01 13:38] LABS: ALT 28 U/L (8-44); AST 18 U/L (13-35); Albumin 4.5 g/dL (3.8-4.9); Albumin/Globulin Ratio 2.25 Ratio (1.60-3.17); Alkaline Phosphatase 73 U/L (41-126); BUN/Creat Ratio 25.67 Ratio (12.00-20.00); Blood Urea Nitrogen 15.4 mg/dL (9.0-27.0); Calcium 9.4 mg/dL (8.7-10.3); Carbon Dioxide 23.4 mmol/L (21.6-31.8); Chloride 102 mmol/L (96-109); Chol/HDL Ratio 2.71 Ratio; Glucose 96 mg/dL (70-110); Potassium 4.5 mmol/L (3.5-5.5); Sodium 142 mmol/L (135-145); T4, Free (Free Thyroxine) 1.18 ng/dL (0.80-1.80); Total Bilirubin 0.3 mg/dL (0.3-1.2); Total Protein 6.5 g/dL (6.2-8.2); VLDL Calculation 17.66 mg/dL (5.00-40.00)
== END | disposition home or self-care (01) ==
LOC: LABWHC1 09:57
PROVIDERS: ATTEND Family Medicine
DX: Z13.220 Encounter for screening for lipoid disorders (principal); I10 Essential (primary) hypertension; E66.3 Overweight; E03.9 Hypothyroidism, unspecified; Z68.28 Body mass index [BMI] 28.0-28.9, adult
CPT/HCPCS: 36415; 80053; 80061; 84439; 84443; 84481; 85025

== ENCOUNTER 2024-02-04 20:20 | Emergency (ER) | payer BC ==
[2024-02-04] MEDS ORDERED: DIPH,PERTUS(ACELL)TETVAC-LF 0.5 ML VIAL IM ONE (23:45)
== END 2024-02-05 00:21 | disposition home or self-care (01) ==
LOC: EC 20:20
CPT/HCPCS: 90715; 99282

== ENCOUNTER → 2024-07-23 | Outpatient (CLI) | payer BC ==
--- NOTE | 2024-07-26 07:53 | MM ---
Reason for Exam: Screening (asymptomatic). Last screening mammogram was performed 12 month(s) ago. Patient History: Menarche at age 13. First Full-Term at age 25. Postmenopausal. Patient has history of breast feeding. Estrogen for 2 months. Patient used Hormonal Contraceptives for 10 years. 01/08/2017, Benign Core Biopsy on the left side. 12/18/2016, Benign Core Biopsy on the left side. Maternal cousin had breast cancer, age 70. Mother had breast cancer, age 40. Risk Values: Veronica 5 year model risk: 3.2%. NCI Lifetime model risk: 20.6%. Prior Study Comparison: 06/20/2021 Bilateral Screening Mammogram, [facility]. 06/26/2022 Bilateral MG 3D screening mammo w/cad, [facility]. 07/14/2023 Bilateral MG 3D screening mammo w/cad, [facility]. Tissue Density: The breasts are heterogeneously dense, which may obscure small masses. Findings: Analyzed By CAD. There are 2 biopsy clips in the left breast redemonstrated. Benign-appearing vascular calcification bilaterally is again seen. There is new group of indeterminate heterogeneous calcifications right breast seen best on CC view that warrant further workup. Overall Assessment: Incomplete: need additional imaging evaluation, BI-RAD 0 Management: Diagnostic Mammogram of the right breast. Return for additional views including spot magnification tomogram and 3-D true lateral tomogram view right breast. Patient should continue monthly self-breast exams. A clinical breast exam by your physician is recommended on an annual basis. This exam should not preclude additional follow-up of suspicious palpable abnormalities. Note on Veronica scores and lifetime risk: 1. A Veronica score greater than 3% is considered moderate risk. If this is the case, consider specialist referral to assess eligibility for a risk reducing agent. 2. If overall lifetime risk for the development of breast cancer is 20% or higher, the patient may qualify for future screening with alternating mammogram and breast MRI. [facility], , 07/26/2024 7:50 AM. Electronically signed and approved by: Dyllan Paris M.D.
== END | disposition home or self-care (01) ==
LOC: RADMAMWWP 16:26
PROVIDERS: ATTEND Obstetrics & Gynecology
DX: Z12.31 Encounter for screening mammogram for malignant neoplasm of breast (principal); R92.333 Mammographic heterogeneous density, bilateral breasts; Z78.0 Asymptomatic menopausal state; Z80.3 Family history of malignant neoplasm of breast
CPT/HCPCS: 77063; 77067